=== PATIENT | male | born 1970 | race American Indian/Alaskan Native ===

== ENCOUNTER 2017-12-20 09:38 | Emergency (ER) | payer SELFPAY ==
[2017-12-20 11:54] VITALS: BP 117/96
--- NOTE | 2017-12-20 12:42 | Emergency Department Report ---
ED General Adult HPI - General Chief complaint: High BP Stated complaint: HIGH BP Time Seen by Provider: 12/20/17 11:51 Source: patient Mode of arrival: Ambulatory Limitations: No Limitations - History of Present Illness Initial comments: Patient presents to the emergency department with chief complaint of high blood pressure. Patient states for the last 1-2 weeks when checking his blood pressure has been elevated. Patient states that he went to urgent care last week and his blood pressure was elevated as states was possibly 190/90. Patient denies headache, chest pain, normal pain, facial droop, numbness or strongly weakness -: Gradual Radiation: non-radiation Severity scale (0 -10): 1 Improves with: none Worsens with: none Associated Symptoms: denies other symptoms Treatments Prior to Arrival: none - Related Data Previous Rx's Medication Instructions Recorded Last Taken Type Amlodipine Besylate [Norvasc] 5 mg PO QDAY #30 tablet 12/20/17 Unknown Rx Allergies Allergy/AdvReac Type Severity Reaction Status Date / Time No Known Allergies Allergy Unverified 12/20/17 10:18 ED Review of Systems ROS: Stated complaint: HIGH BP Other details as noted in HPI Comment: All other systems reviewed and negative Constitutional: denies: chills, fever Eyes: denies: eye pain, eye discharge, vision change ENT: denies: ear pain, throat pain Respiratory: denies: cough, shortness of breath, wheezing Cardiovascular: denies: chest pain, palpitations Endocrine: no symptoms reported Gastrointestinal: denies: abdominal pain, nausea, diarrhea Genitourinary: denies: urgency, dysuria Musculoskeletal: denies: back pain, joint swelling, arthralgia Skin: denies: rash, lesions Neurological: denies: headache, weakness, paresthesias Psychiatric: denies: anxiety, depression Hematological/Lymphatic: denies: easy bleeding, easy bruising ED Past Medical Hx - Past Medical History Previous Medical History?: No Additional medical history: gout - Social History Smoking Status: Never Smoker Substance Use Type: Alcohol - Medications Home Medications: Home Medications Medication Instructions Recorded Confirmed Last Taken Type Amlodipine Besylate [Norvasc] 5 mg PO QDAY #30 tablet 12/20/17 Unknown Rx ED Physical Exam - General Limitations: No Limitations General appearance: alert, in no apparent distress - Head Head exam: Present: atraumatic, normocephalic - Eye Eye exam: Present: normal appearance - ENT ENT exam: Present: mucous membranes moist - Neck Neck exam: Present: normal inspection - Respiratory Respiratory exam: Present: normal lung sounds bilaterally. Absent: respiratory distress, wheezes, rales, rhonchi - Cardiovascular Cardiovascular Exam: Present: regular rate, normal rhythm. Absent: systolic murmur, diastolic murmur, rubs, gallop - GI/Abdominal GI/Abdominal exam: Present: soft, normal bowel sounds. Absent: distended, tenderness - Rectal Rectal exam: Present: deferred - Extremities Exam Extremities exam: Present: normal inspection - Back Exam Back exam: Present: normal inspection - Neurological Exam Neurological exam: Present: alert, oriented X3, CN II-XII intact. Absent: motor sensory deficit - Psychiatric Psychiatric exam: Present: normal affect, normal mood - Skin Skin exam: Present: warm, dry, intact, normal color. Absent: rash ED Course Vital Signs 12/20/17 12/20/17 10:13 11:53 Temperature 98.2 F Pulse Rate 107 H 79 Respiratory 18 20 Rate Blood Pressure 171/99 Blood Pressure 117/96 [Right] O2 Sat by Pulse 98 98 Oximetry ED Medical Decision Making - Medical Decision Making Patient will be started on hypertensive medications with follow-up Critical care attestation.: If time is entered above; I have spent that time in minutes in the direct care of this critically ill patient, excluding procedure time. ED Disposition Clinical Impression: Elevated blood pressure reading Disposition: DC-01 TO HOME OR SELFCARE Is pt being admited?: No Does the pt Need Aspirin: No Condition: Stable Instructions: Hypertension (ED) Additional Instructions: return if worse Prescriptions: Amlodipine Besylate [Norvasc] 5 mg PO QDAY #30 tablet Referrals: PRIMARY MD BOB [Primary Care Provider] - 3-5 Days DEMARCO LAW MD [Staff Physician] - 3-5 Days [facility] [Provider Group] - 3-5 Days [facility] [Outside] - 3-5 Days [facility] [Provider Group] - 3-5 Days Time of Disposition: 12:42
== END 2017-12-20 12:52 | disposition home or self-care (01) ==
LOC: ED 09:38
DX: R03.0 Elevated blood-pressure reading, without diagnosis of hypertension (principal); M10.9 Gout, unspecified
CPT/HCPCS: 99282

== ENCOUNTER 2018-01-31 06:59 | Emergency (ER) | payer OTHER ==
[2018-01-31] MEDS ORDERED: ASPIRIN PO ONE (07:52)
[2018-01-31 08:28] LABS: Basophils % (Auto) 0.4 % (0.0-1.8); Eosinophils % (Auto) 0.6 % (0.0-4.3); Hematocrit 44.5 % (35.5-45.6); Hemoglobin 15.3 gm/dl (11.8-15.2); Lymphocytes # (Auto) 1.3 K/mm3 (1.2-5.4); Mean Corpuscular HGB Conc 34 % (32-34); Mean Corpuscular Hemoglobin 31 pg (28-32); Mean Corpuscular Volume 91 fl (84-94); Monocytes # (Auto) 0.5 K/mm3 (0.0-0.8); Monocytes % (Auto) 7.1 % (0.0-7.3); Platelet Count 239 K/mm3 (140-440); Red Blood Count 4.89 M/mm3 (3.65-5.03); Red Cell Distribution Width 12.5 % (13.2-15.2)
[2018-01-31 08:49] LABS: BUN/Creatinine Ratio 16; Blood Urea Nitrogen 13 mg/dL (9-20); Calcium 9.7 mg/dL (8.4-10.2); Hemolysis Index 48
--- NOTE | 2018-01-31 09:04 | Emergency Department Report ---
ED General Adult HPI - General Chief complaint: Dizziness Stated complaint: LT SIDE BODY PAIN, RAPID HR, SWOLLEN HAND Time Seen by Provider: 01/31/18 09:01 Source: patient Mode of arrival: Ambulatory Limitations: No Limitations - History of Present Illness Initial comments: 47-year-old male with past history of hypertension presents stating he's been having dizziness. Patient states that for the past 6 weeks he's been feeling dizzy but would worsen and made him come to the emergency department was yesterday felt like he is about to pass out. Patient states he has intermittent times where his heart feels like it is racing. Patient states that he's had lab work done in his primary care doctor's office and was normal. Patient states he has no history of DVT or PE. Patient denies focal weakness or slurred speech. Patient denies chest pain Patient has had no falls. Recent complains of a swollen hand since Sunday stating that he fell on his left hand but denies any other injuries to his extremities or head trauma. - Related Data Previous Rx's Medication Instructions Recorded Last Taken Type Amlodipine Besylate [Norvasc] 5 mg PO QDAY #30 tablet 12/20/17 Unknown Rx Meclizine [Antivert] 25 mg PO TID PRN #10 tablet 01/31/18 Unknown Rx Allergies Allergy/AdvReac Type Severity Reaction Status Date / Time No Known Allergies Allergy Verified 01/31/18 09:02 ED Review of Systems ROS: Stated complaint: LT SIDE BODY PAIN, RAPID HR, SWOLLEN HAND Other details as noted in HPI Constitutional: other (myalgias). denies: chills, fever Eyes: denies: eye pain, eye discharge, vision change ENT: denies: ear pain, throat pain Respiratory: denies: cough, shortness of breath, wheezing Cardiovascular: denies: chest pain, palpitations Endocrine: no symptoms reported Gastrointestinal: denies: abdominal pain, nausea, diarrhea Genitourinary: denies: urgency, dysuria Musculoskeletal: denies: back pain, joint swelling, arthralgia Skin: denies: rash, lesions Neurological: other (dizziness). denies: headache, weakness, paresthesias Psychiatric: denies: anxiety, depression Hematological/Lymphatic: denies: easy bleeding, easy bruising ED Past Medical Hx - Past Medical History Previous Medical History?: Yes Hx Hypertension: Yes Additional medical history: gout - Surgical History Past Surgical History?: No - Social History Smoking Status: Never Smoker Substance Use Type: Alcohol - Medications Home Medications: Home Medications Medication Instructions Recorded Confirmed Last Taken Type Amlodipine Besylate [Norvasc] 5 mg PO QDAY #30 tablet 12/20/17 Unknown Rx Meclizine [Antivert] 25 mg PO TID PRN #10 tablet 01/31/18 Unknown Rx ED Physical Exam - General Limitations: No Limitations General appearance: alert, in no apparent distress - Head Head exam: Present: atraumatic, normocephalic - Eye Eye exam: Present: normal appearance - ENT ENT exam: Present: mucous membranes moist - Neck Neck exam: Present: normal inspection - Respiratory Respiratory exam: Present: normal lung sounds bilaterally. Absent: respiratory distress - Cardiovascular Cardiovascular Exam: Present: regular rate, normal rhythm. Absent: systolic murmur, diastolic murmur, rubs, gallop - GI/Abdominal GI/Abdominal exam: Present: soft, normal bowel sounds - Rectal Rectal exam: Present: deferred - Extremities Exam Extremities exam: Present: other (swelling noted on the dorsum of the left hand with no evidence of ecchymoses or erythema) - Back Exam Back exam: Present: normal inspection - Neurological Exam Neurological exam: Present: alert, oriented X3 - Psychiatric Psychiatric exam: Present: normal affect, normal mood - Skin Skin exam: Present: warm, dry, intact, normal color. Absent: rash ED Course Vital Signs 01/31/18 01/31/18 01/31/18 07:45 08:26 08:30 Temperature 98.6 F Pulse Rate 83 74 Pulse Rate [ Lying] Respiratory 18 14 Rate Blood Pressure 144/96 139/85 Blood Pressure [Lying] O2 Sat by Pulse 100 98 99 Oximetry 01/31/18 01/31/18 01/31/18 08:45 09:00 09:15 Temperature Pulse Rate 75 70 74 Pulse Rate [ Lying] Respiratory 19 22 17 Rate Blood Pressure 126/88 129/78 128/83 Blood Pressure [Lying] O2 Sat by Pulse 98 97 Oximetry 01/31/18 01/31/18 01/31/18 09:30 09:45 10:21 Temperature Pulse Rate 85 79 Pulse Rate [ 75 Lying] Respiratory 16 19 Rate Blood Pressure 137/83 137/90 Blood Pressure 135/82 [Lying] O2 Sat by Pulse 91 96 Oximetry ED Medical Decision Making - Lab Data Result diagrams: 01/31/18 08:12 01/31/18 08:12 - EKG Data -: EKG Interpreted by Me EKG shows normal: sinus rhythm - EKG Data Interpretation: no acute changes - Radiology Data Radiology results: report reviewed - Medical Decision Making Patient has a CT was shows no acute pathology and no acute electrolyte abnormality. Patient be discharged to follow with neurology as an outpatient. Patient be given meclizine he is on a when necessary basis. - Differential Diagnosis NSTEMI; STEMI; Electrolyte abnormality; anemia; Critical care attestation.: If time is entered above; I have spent that time in minutes in the direct care of this critically ill patient, excluding procedure time. ED Disposition Clinical Impression: Dizziness Disposition: DC- TO HOME OR SELFCARE Is pt being admited?: No Does the pt Need Aspirin: No Condition: Stable Prescriptions: Meclizine [Antivert] 25 mg PO TID PRN #10 tablet PRN Reason: Vertigo Referrals: PRIMARY CAREMD [Primary Care Provider] - 3-5 Days CONOR GUERRA MD [Referring] - 3-5 Days Time of Disposition: 12:03 Print Language: LITHUANIAN
[2018-01-31] MEDS ORDERED: NACL 0.9% 1000 ML 1,000 ML IV ONE (10:14)
--- NOTE | 2018-01-31 10:43 | XRay Report ---
LEFT HAND, 2 views: History: Hand pain. The bony architecture is intact. Bony alignment is normal. There is moderate soft tissue swelling on the dorsum of the hand. The joint spaces appear preserved. IMPRESSION: Soft tissue swelling.
--- NOTE | 2018-01-31 10:43 | Cat Scan Report ---
CT HEAD WITHOUT CONTRAST: HISTORY: Headache and dizziness. TECHNIQUE: Sequential 2.5mm CT images. COMPARISON: none. FINDINGS: Cerebral Parenchyma: Within normal limits. Cerebellum: Within normal limits. Brainstem: Within normal limits. Ventricles: Normal. Sella: Normal. Extra-axial spaces: Normal. Basal Cisterns: Normal. Intracranial Hemorrhage: None. Midline Shift: None. Calvarium: Normal. Sinuses: Normal. Mastoid Air Cells: Normal. Visualized Orbits: Normal. IMPRESSION: Cranial CT scan within normal limits.
--- NOTE | 2018-01-31 10:44 | XRay Report ---
ROUTINE CHEST, TWO VIEWS: HISTORY: chest pain. The trachea, heart, mediastinal contour, lung levin and bony thorax are unremarkable. IMPRESSION: Unremarkable chest x-ray.
[2018-01-31] MEDS ORDERED: ANTIVERT PO ONE (11:46)
[2018-01-31 12:23] VITALS: BP 138/91
== END 2018-01-31 12:23 | disposition home or self-care (01) ==
LOC: ED 06:59
DX: R42 Dizziness and giddiness (principal); I10 Essential (primary) hypertension; M10.9 Gout, unspecified
CPT/HCPCS: 36415; 70450; 71046; 80048; 84484; 85025; 93005; 93010